=== PATIENT | female | born 1955 | race Caucasian/White ===

== ENCOUNTER → 2024-01-29 | Outpatient (CLI) | payer BC | END | disposition home or self-care (01) | LOC: US 03:15 | PROVIDERS: ATTEND Internal Medicine Nephrology | DX: N32.89 Other specified disorders of bladder (principal); N18.32 Chronic kidney disease, stage 3b; Z96.0 Presence of urogenital implants ==

== ENCOUNTER → 2025-06-16 | Outpatient (CLI) | payer MEDICARE | END | disposition home or self-care (01) | LOC: CARD 08:23 | PROVIDERS: ATTEND Internal Medicine Nephrology | DX: I35.1 Nonrheumatic aortic (valve) insufficiency (principal); R01.1 Cardiac murmur, unspecified ==